=== PATIENT | female | born 1980 | race Caucasian/White ===

== ENCOUNTER → 2016-12-21 | Outpatient (CLI) | payer BC | END | disposition home or self-care (01) | LOC: Rad HDHVI 14:04 | PROVIDERS: ATTEND Internal Medicine Cardiovascular Disease | DX: I42.8 Other cardiomyopathies (principal); I50.9 Heart failure, unspecified | CPT/HCPCS: 93306 ==

== ENCOUNTER → 2016-12-28 | Outpatient (CLI) | payer BC ==
[~2016-12-28] VITALS: Ht 175.3 cm; Wt 127.0 kg
== END | disposition home or self-care (01) ==
LOC: Rad HDHVI 10:04
PROVIDERS: ATTEND Internal Medicine Cardiovascular Disease
DX: Z01.810 Encounter for preprocedural cardiovascular examination (principal); I42.1 Obstructive hypertrophic cardiomyopathy
CPT/HCPCS: 78472; 96374; 96375; A9505

== ENCOUNTER → 2017-03-07 | Outpatient (CLI) | payer BC, MEDICARE ==
[~2017-03-07] MED LIST: CARV6.25 PO; FURO40TA PO; LOSA25TA9 PO; OME20T PO; OMEP20CA74 PO; [UNRECOGNIZED DRUG - CODE] PO
[2017-03-07 08:30] VITALS: BP 135/96
[2017-03-07 09:05] VITALS: BP 148/92
[2017-03-07 12:18] LABS: Basophils # (auto) 0.1 uL; Eosinophils # (auto) 0.1 uL; Hemoglobin 12.7 g/dL (12.2-16.2); INR 0.93 (0.9-1.15); Lymphocytes # (auto) 1.3 uL; Mean Corpuscular Hemoglobin 25.7 pg (28.0-32.0); Mean Corpuscular Hgb Conc. 32.5 g/dL (32.0-36.0); Monocytes # (auto) 0.5 uL; Neutrophils # (auto) 6.2 uL; Prothrombin Time 10.1 sec (9.37-12.3); Red Blood Cells 4.94 10^6/uL (4.0-5.20)
[2017-03-07 12:19] LABS: Eosinophils % (auto) 1.3 % (0.0-7.0); Lymphocytes % (auto) 16.3 % (10.0-50.0); Neutrophils % (auto) 75.4 % (37.0-80.0); Nucleated Red Blood Cells % 0.4 %; Platelet Count (auto) 292 10^3/uL (140-450); Red Cell Distribution Width 18.8 % (11.8-14.3); White Blood Cell 8.2 10^3/uL (4.4-10.8)
[2017-03-07 12:46] LABS: BUN/Creatinine Ratio 24.1; Potassium 3.9 mmol/L (3.5-5.1)
== END | disposition home or self-care (01) ==
LOC: Rad HDHVI 08:20
PROVIDERS: ATTEND Internal Medicine Cardiovascular Disease
DX: Z01.818 Encounter for other preprocedural examination (principal); D64.9 Anemia, unspecified; R79.1 Abnormal coagulation profile; I11.0 Hypertensive heart disease with heart failure; I50.9 Heart failure, unspecified; I42.8 Other cardiomyopathies
CPT/HCPCS: 36415; 71046; 80048; 85025; 85610; 85730; 93005; G0463

== ENCOUNTER 2017-03-08 08:40 | Day surgery (SDC) | payer BC, MEDICARE ==
[~2017-03-08] VITALS: Ht 175.3 cm; Wt 134.3 kg
[~2017-03-08 08:40] MED LIST changes: -CARV6.25 PO; -FURO40TA PO; -LOSA25TA9 PO; -OME20T PO; -[UNRECOGNIZED DRUG - CODE] PO
[2017-03-08] MEDS ORDERED: IOHEXOL 350 MG/ML 100ML IJ ONE (09:38)
[2017-03-08] MEDS ORDERED: LIDOCAINE 2%HCL (LOCAL ANESTH.) INJ 20ML MDV ONE ×2 (09:38→10:29)
[2017-03-08] MEDS ORDERED: ANGIOMAX 250 MG VIAL IV ONE (09:59)
[2017-03-08] MEDS ORDERED: fentaNYL CITRATE 100 MCG/2 ML VL ONE (09:59)
[2017-03-08] MEDS ORDERED: MIDAZOLAM HCL 1MG/1ML-2 ML VIAL ONE ×2 (10:00→10:26)
[2017-03-08] MEDS ORDERED: SODIUM CHL 0.9% 50 ML ONE (10:00)
[2017-03-08] MEDS ORDERED: HYDROmorphone HCL 2 MG/ML VL ONE (10:43)
[2017-04-18] MEDS ORDERED: CARV6.25 PO (15:58)
== END 2017-03-08 13:25 | disposition home or self-care (01) ==
LOC: CATH 08:40
PROVIDERS: ATTEND Internal Medicine Cardiovascular Disease
DX: I42.0 Dilated cardiomyopathy (principal); E66.9 Obesity, unspecified; Z68.41 Body mass index [BMI] 40.0-44.9, adult; I50.9 Heart failure, unspecified; I73.9 Peripheral vascular disease, unspecified
CPT/HCPCS: 93460; C1760; C1894; J1170; J1644; J2250; J3010; J7030; Q9967; 99152; 99153

== ENCOUNTER → 2017-03-13 | Outpatient (CLI) | payer BC, MEDICARE ==
[~2017-03-13] MED LIST changes: +CARV6.25 PO; +FURO40TA PO; +LOSA25TA9 PO; +OME20T PO; +[UNRECOGNIZED DRUG - CODE] PO
== END | disposition home or self-care (01) ==
LOC: Rad HDHVI 09:10
PROVIDERS: ATTEND Internal Medicine Cardiovascular Disease
DX: R10.30 Lower abdominal pain, unspecified (principal)
CPT/HCPCS: 76705

== ENCOUNTER → 2017-03-14 | Outpatient (CLI) | payer BC, MEDICARE ==
[~2017-03-14] MED LIST changes: +IOHEXOL 350 MG/ML 100ML IJ ONE
[2017-03-14 15:55] VITALS: BP 134/95
[2017-03-14 16:30] VITALS: BP 138/87
== END | disposition home or self-care (01) ==
LOC: Rad HDHVI 15:51
PROVIDERS: ATTEND Internal Medicine Cardiovascular Disease
DX: K66.1 Hemoperitoneum (principal)
CPT/HCPCS: 72193; 96374; G0463; Q9967

== ENCOUNTER 2017-03-19 16:03 | Inpatient (IN) | payer BC, MEDICARE ==
[~2017-03-19] VITALS: Ht 172.7 cm; Wt 136.2 kg
[~2017-03-19 16:03] MED LIST changes: -CARV6.25 PO; -FURO40TA PO; -IOHEXOL 350 MG/ML 100ML IJ ONE; -KETOROLAC TROMETH 30 MG/ML 1ML VIAL IV PRN; -KETOROLAC TROMETH 60MG/2ML VIAL IM ONE; -LOSA25TA9 PO; -OME20T PO; -[UNRECOGNIZED DRUG - CODE] PO
[2017-03-19 17:13] VITALS: BP 145/72
[2017-03-19 17:20] LABS: Urine WBC None Seen /hpf (0 - 5)
[2017-03-19 17:41] LABS: Urine Bacteria FEW /hpf (None Seen); Urine Blood TRACE /uL (Negative); Urine Mucus FEW (None Seen)
[2017-03-19 17:50] LABS: Urine Specific Gravity > 1.050 (1.001-1.035)
[2017-03-19] MEDS ORDERED: EPOETIN ALFA 4,000 UNIT/ML VL SC ONE (18:00)
[2017-03-19] MEDS: HYDROmorphone HCL 2 MG/ML VL IV PRN ×2 (18:15→21:46)
[2017-03-19 21:30] VITALS: BP 122/70
[2017-03-19] MEDS: CARVEDILOL 3.125 MG TAB PO SCH (21:45)
[2017-03-20] MEDS: HYDROmorphone HCL 2 MG/ML VL IV PRN ×6 (01:54→20:14)
[2017-03-20 05:00] VITALS: BP 98/57
[2017-03-20 05:45] LABS: Basophils # (auto) 0.1 uL; Eosinophils # (auto) 0.2 uL; Hemoglobin 10.1 g/dL (12.2-16.2); Monocytes # (auto) 0.6 uL; Neutrophils # (auto) 4.6 uL; White Blood Cell 7.1 10^3/uL (4.4-10.8)
[2017-03-20 05:47] LABS: Eosinophils % (auto) 2.4 % (0.0-7.0); Hematocrit 31.2 % (36.0-46.0); Lymphocytes # (auto) 1.6 uL; Lymphocytes % (auto) 22.7 % (10.0-50.0); Mean Corpuscular Hemoglobin 25.9 pg (28.0-32.0); Mean Corpuscular Hgb Conc. 32.2 g/dL (32.0-36.0); Mean Corpuscular Volume 80.4 fL (80.0-100.0); Monocytes % (auto) 8.6 % (0.0-12.0); Neutrophils % (auto) 65.3 % (37.0-80.0); Nucleated Red Blood Cells % 0.1 %; Platelet Count (auto) 429 10^3/uL (140-450); Red Blood Cells 3.89 10^6/uL (4.0-5.20); Red Cell Distribution Width 18.1 % (11.8-14.3)
[2017-03-20 06:05] LABS: Calcium 8.8 mg/dL (8.5-10.1); Potassium 3.5 mmol/L (3.5-5.1)
[2017-03-20 06:08] LABS: BUN/Creatinine Ratio 26.7
[2017-03-20 09:00] VITALS: BP 124/56
[2017-03-20] MEDS: PANTOPRAZOLE 40 MG TAB PO SCH (10:33)
[2017-03-20] MEDS: CARVEDILOL 3.125 MG TAB PO SCH ×2 (10:40→21:35)
[2017-03-20] MEDS: LOSARTAN POTASSIUM 25 MG TAB PO SCH (10:41)
[2017-03-20 13:00] VITALS: BP 116/58
[2017-03-20] MEDS ORDERED: HYDROmorphone HCL 2 MG/ML VL IV PRN (15:30)
[2017-03-20 17:00] VITALS: BP 118/62
[2017-03-20] MEDS: DOCUSATE SOD 100 MG CAP PO SCH (21:35)
[2017-03-20] MEDS: LORazepam 0.5 MG TAB PO PRN (21:35)
[2017-03-20 21:40] VITALS: BP 109/55
[2017-03-21 05:00] VITALS: BP 104/55
[2017-03-21] MEDS: HYDROmorphone HCL 2 MG/ML VL IV PRN (05:33)
[2017-03-21] MEDS ORDERED: IOHEXOL 300 MG/ML 100ML BOTTLE IJ ONE (06:54)
[2017-03-21 07:21] LABS: Basophils # (auto) 0.1 uL; Eosinophils # (auto) 0.1 uL; Hemoglobin 9.9 g/dL (12.2-16.2); Lymphocytes # (auto) 1.1 uL
[2017-03-21 07:24] LABS: Basophils % (auto) 1.1 % (0.0-2.0); Hematocrit 30.3 % (36.0-46.0); Mean Corpuscular Hemoglobin 26.2 pg (28.0-32.0); Mean Corpuscular Hgb Conc. 32.6 g/dL (32.0-36.0); Mean Corpuscular Volume 80.4 fL (80.0-100.0); Monocytes # (auto) 0.5 uL; Monocytes % (auto) 7.5 % (0.0-12.0); Neutrophils # (auto) 5.2 uL; Neutrophils % (auto) 74.4 % (37.0-80.0); Platelet Count (auto) 422 10^3/uL (140-450); Red Blood Cells 3.76 10^6/uL (4.0-5.20); Red Cell Distribution Width 17.7 % (11.8-14.3)
[2017-03-21 07:53] VITALS: BP 110/50
[2017-03-21] MEDS: LOSARTAN POTASSIUM 25 MG TAB PO SCH (11:00)
[2017-03-21] MEDS: PANTOPRAZOLE 40 MG TAB PO SCH (11:00)
[2017-03-21] MEDS: DOCUSATE SOD 100 MG CAP PO SCH ×2 (11:01→21:55)
[2017-03-21] MEDS: CARVEDILOL 3.125 MG TAB PO SCH ×2 (11:01→21:55)
[2017-03-21 11:34] VITALS: BP 108/54
[2017-03-21] MEDS ORDERED: HYDROmorphone HCL 2 MG TAB PO SCH (12:00)
[2017-03-21] MEDS: MEPERIDINE HCL (50 MG/ML) 1 ML VIAL IV PRN ×2 (15:13→20:07)
[2017-03-21 16:16] VITALS: BP 104/48
[2017-03-21] MEDS: HYDROmorphone HCL 2 MG TAB PO PRN (21:54)
[2017-03-21 22:00] VITALS: BP 143/93
[2017-03-21] MEDS: LORazepam 0.5 MG TAB PO PRN (23:36)
[2017-03-22] MEDS: MEPERIDINE HCL (50 MG/ML) 1 ML VIAL IV PRN ×4 (03:53→20:03)
[2017-03-22 05:00] VITALS: BP 105/55
[2017-03-22] MEDS: HYDROmorphone HCL 2 MG TAB PO PRN ×4 (07:38→23:25)
[2017-03-22 07:56] VITALS: BP 103/58
[2017-03-22] MEDS: DOCUSATE SOD 100 MG CAP PO SCH ×2 (09:47→22:16)
[2017-03-22] MEDS: CARVEDILOL 3.125 MG TAB PO SCH ×2 (09:47→22:16)
[2017-03-22] MEDS: PANTOPRAZOLE 40 MG TAB PO SCH (09:47)
[2017-03-22] MEDS: LOSARTAN POTASSIUM 25 MG TAB PO SCH (09:48)
[2017-03-22 11:37] VITALS: BP 102/62
[2017-03-22] MEDS ORDERED: BISACODYL 5 MG EC TAB PO ONE (13:45)
[2017-03-22 16:01] VITALS: BP 113/64
[2017-03-22 22:00] VITALS: BP 100/55
[2017-03-22] MEDS: LORazepam 0.5 MG TAB PO PRN (22:16)
[2017-03-23] MEDS: MEPERIDINE HCL (50 MG/ML) 1 ML VIAL IV PRN ×3 (04:05→12:46)
[2017-03-23 05:00] VITALS: BP 119/63
[2017-03-23 08:40] VITALS: BP 113/63
[2017-03-23] MEDS: DOCUSATE SOD 100 MG CAP PO SCH ×2 (09:20→21:35)
[2017-03-23] MEDS: PANTOPRAZOLE 40 MG TAB PO SCH (09:20)
[2017-03-23] MEDS: CARVEDILOL 3.125 MG TAB PO SCH ×2 (09:20→21:36)
[2017-03-23] MEDS: LOSARTAN POTASSIUM 25 MG TAB PO SCH (09:21)
[2017-03-23 13:07] VITALS: BP 108/51
[2017-03-23] MEDS: HYDROmorphone HCL 2 MG TAB PO PRN (14:55)
[2017-03-23] MEDS: HYDROmorphone HCL 2 MG/ML VL IV PRN ×3 (16:27→23:29)
[2017-03-23 16:58] VITALS: BP 111/61
[2017-03-23 22:00] VITALS: BP 118/70
[2017-03-24] MEDS: LORazepam 0.5 MG TAB PO PRN ×2 (00:14→23:51)
[2017-03-24] MEDS: HYDROmorphone HCL 2 MG/ML VL IV PRN (04:46)
[2017-03-24 05:00] VITALS: BP 106/57
[2017-03-24 08:00] VITALS: BP 118/63
[2017-03-24] MEDS: MEPERIDINE HCL (50 MG/ML) 1 ML VIAL IV PRN ×4 (08:55→23:18)
[2017-03-24 09:00] VITALS: BP 118/63
[2017-03-24] MEDS: DOCUSATE SOD 100 MG CAP PO SCH ×2 (10:01→21:39)
[2017-03-24] MEDS: CARVEDILOL 3.125 MG TAB PO SCH ×2 (10:03→21:40)
[2017-03-24] MEDS: PANTOPRAZOLE 40 MG TAB PO SCH (10:04)
[2017-03-24] MEDS: LOSARTAN POTASSIUM 25 MG TAB PO SCH (10:04)
[2017-03-24] MEDS: HYDROmorphone HCL 2 MG TAB PO PRN (12:06)
[2017-03-24 17:00] VITALS: BP 116/57
[2017-03-24 22:00] VITALS: BP 117/76
[2017-03-25] MEDS: MEPERIDINE HCL (50 MG/ML) 1 ML VIAL IV PRN ×5 (04:46→23:12)
[2017-03-25 05:00] VITALS: BP 97/46
[2017-03-25 08:00] VITALS: BP 124/66
[2017-03-25 09:03] VITALS: BP 124/66
[2017-03-25] MEDS: CARVEDILOL 3.125 MG TAB PO SCH ×2 (09:45→21:35)
[2017-03-25] MEDS: LOSARTAN POTASSIUM 25 MG TAB PO SCH (09:46)
[2017-03-25] MEDS: PANTOPRAZOLE 40 MG TAB PO SCH (09:46)
[2017-03-25] MEDS: DOCUSATE SOD 100 MG CAP PO SCH ×2 (09:47→21:34)
[2017-03-25 13:00] VITALS: BP 117/63
[2017-03-25 17:13] VITALS: BP 153/84
[2017-03-25 21:38] VITALS: BP 102/52
[2017-03-26] MEDS: LORazepam 0.5 MG TAB PO PRN (00:03)
[2017-03-26] MEDS: MEPERIDINE HCL (50 MG/ML) 1 ML VIAL IV PRN ×2 (04:01→09:08)
[2017-03-26 05:00] VITALS: BP 114/59
[2017-03-26 08:15] VITALS: BP 109/61
[2017-03-26 09:24] VITALS: BP 109/61
[2017-03-26] MEDS: CARVEDILOL 3.125 MG TAB PO SCH (10:00)
[2017-03-26] MEDS: PANTOPRAZOLE 40 MG TAB PO SCH (10:00)
[2017-03-26] MEDS: LOSARTAN POTASSIUM 25 MG TAB PO SCH (10:00)
[2017-03-26] MEDS: DOCUSATE SOD 100 MG CAP PO SCH (10:00)
[2017-03-26 12:30] VITALS: BP 104/51
[2017-04-18] MEDS ORDERED: CARV6.25 PO (15:58)
== END 2017-03-26 12:38 | disposition home or self-care (01) | DRG 292 ==
LOC: WEST WING 16:03
PROVIDERS: ADMIT Internal Medicine Cardiovascular Disease; ATTEND Internal Medicine Cardiovascular Disease
DX: I11.0 Hypertensive heart disease with heart failure (principal); Z68.42 Body mass index [BMI] 45.0-49.9, adult; E66.01 Morbid (severe) obesity due to excess calories; I42.0 Dilated cardiomyopathy; G47.00 Insomnia, unspecified; I34.0 Nonrheumatic mitral (valve) insufficiency; I50.23 Acute on chronic systolic (congestive) heart failure; R58 Hemorrhage, not elsewhere classified; Z82.49 Family history of ischemic heart disease and other diseases of the circulatory system; Z88.2 Allergy status to sulfonamides; Z88.8 Allergy status to other drugs, medicaments and biological substances; Z79.899 Other long term (current) drug therapy
CPT/HCPCS: 36415; 74177; 80048; 81001; 85025

== ENCOUNTER → 2017-03-19 | Outpatient (CLI) | payer BC, MEDICARE ==
[~2017-03-19] MED LIST changes: +KETOROLAC TROMETH 30 MG/ML 1ML VIAL IV PRN; +KETOROLAC TROMETH 60MG/2ML VIAL IM ONE
[2017-03-19 12:00] VITALS: BP 141/104
[2017-03-19 15:11] VITALS: BP 115/63
[2017-03-19 16:34] LABS: Calcium 9.5 mg/dL (8.5-10.1); Potassium 3.9 mmol/L (3.5-5.1)
[2017-03-19 16:36] LABS: BUN/Creatinine Ratio 18.3
[2017-03-19 17:01] LABS: Basophils # (auto) 0.1 uL; Eosinophils # (auto) 0.1 uL; Lymphocytes # (auto) 1.3 uL; Mean Corpuscular Hemoglobin 26.1 pg (28.0-32.0); Nucleated Red Blood Cells % 0.2 %; White Blood Cell 7.9 10^3/uL (4.4-10.8)
[2017-03-19 17:05] LABS: Basophils % (auto) 1.3 % (0.0-2.0); Eosinophils % (auto) 1.6 % (0.0-7.0); Hematocrit 35.4 % (36.0-46.0); Hemoglobin 11.4 g/dL (12.2-16.2); Mean Corpuscular Hgb Conc. 32.3 g/dL (32.0-36.0); Mean Corpuscular Volume 80.6 fL (80.0-100.0); Monocytes # (auto) 0.6 uL; Monocytes % (auto) 7.3 % (0.0-12.0); Neutrophils # (auto) 5.8 uL; Neutrophils % (auto) 73.8 % (37.0-80.0); Platelet Count (auto) 516 10^3/uL (140-450); Red Blood Cells 4.39 10^6/uL (4.0-5.20); Red Cell Distribution Width 18.3 % (11.8-14.3)
== END | disposition home or self-care (01) ==
LOC: CHF HDHVI 11:58
PROVIDERS: ATTEND Internal Medicine Cardiovascular Disease
DX: D64.9 Anemia, unspecified (principal); I10 Essential (primary) hypertension; Z90.49 Acquired absence of other specified parts of digestive tract; Z98.84 Bariatric surgery status; Z98.890 Other specified postprocedural states
CPT/HCPCS: 36415; 74177; 80048; 82565; 85025; 96374; G0463; J1885; Q9967

== ENCOUNTER → 2017-04-18 | Outpatient (CLI) | payer BC, MEDICARE ==
[~2017-04-18] MED LIST changes: +CARV6.25 PO; +FURO40TA PO; +LOSA25TA9 PO; +OME20T PO; +[UNRECOGNIZED DRUG - CODE] PO
[2017-04-18 09:20] VITALS: BP 142/74
[2017-04-18 09:50] VITALS: BP 139/84
[2017-04-18 12:24] LABS: Basophils # (auto) 0.1 uL; Eosinophils # (auto) 0.2 uL; Monocytes # (auto) 0.5 uL; Neutrophils # (auto) 4.7 uL
[2017-04-18 12:27] LABS: Basophils % (auto) 1.5 % (0.0-2.0); Eosinophils % (auto) 2.9 % (0.0-7.0); Hematocrit 40.1 % (36.0-46.0); Hemoglobin 12.9 g/dL (12.2-16.2); Lymphocytes # (auto) 1.6 uL; Mean Corpuscular Hemoglobin 25.6 pg (28.0-32.0); Mean Corpuscular Hgb Conc. 32.1 g/dL (32.0-36.0); Mean Corpuscular Volume 79.6 fL (80.0-100.0); Monocytes % (auto) 7.1 % (0.0-12.0); Neutrophils % (auto) 65.5 % (37.0-80.0); Nucleated Red Blood Cells % 0.2 %; Platelet Count (auto) 301 10^3/uL (140-450); Red Blood Cells 5.04 10^6/uL (4.0-5.20); Red Cell Distribution Width 16.8 % (11.8-14.3); White Blood Cell 7.1 10^3/uL (4.4-10.8)
[2017-04-18 12:41] LABS: BUN/Creatinine Ratio 19.7; Calcium 9.2 mg/dL (8.5-10.1); INR 0.94 (0.9-1.15); Partial Thromboplastin Time 27.6 sec (22.64-33.71); Potassium 4.2 mmol/L (3.5-5.1); Prothrombin Time 10.2 sec (9.37-12.3)
== END | disposition home or self-care (01) ==
LOC: Rad HDHVI 08:59
PROVIDERS: ATTEND Internal Medicine Cardiovascular Disease
DX: Z01.818 Encounter for other preprocedural examination (principal); M41.80 Other forms of scoliosis, site unspecified; I11.0 Hypertensive heart disease with heart failure; I50.9 Heart failure, unspecified; D64.9 Anemia, unspecified; R79.1 Abnormal coagulation profile; I42.8 Other cardiomyopathies
CPT/HCPCS: 36415; 71046; 80048; 84702; 85025; 85610; 85730; 93005; G0463

== ENCOUNTER 2017-04-24 12:15 | Inpatient (IN) | payer BC, MEDICARE ==
[~2017-04-24] VITALS: Ht 175.3 cm; Wt 134.5 kg
[~2017-04-24 12:15] MED LIST changes: -FURO40TA PO; -LOSA25TA9 PO; -OME20T PO; -[UNRECOGNIZED DRUG - CODE] PO
[2017-04-24] MEDS ORDERED: IOHEXOL 350 MG/ML 100ML IJ ONE (12:38)
[2017-04-24] MEDS ORDERED: LIDOCAINE 2%HCL (LOCAL ANESTH.) INJ 20ML MDV ONE ×2 (12:38→14:16)
[2017-04-24] MEDS ORDERED: ceFAZolin 1GM/50ML 50 ML IV ONE (13:02)
[2017-04-24] MEDS ORDERED: VANCOMYCIN HCL 1000 MG VL ONE ×2 (13:02→13:03)
[2017-04-24] MEDS ORDERED: fentaNYL CITRATE 100 MCG/2 ML VL ONE ×2 (13:02→14:10)
[2017-04-24] MEDS ORDERED: VANCOMYCIN 1GM/250ML 250 ML IV ONE (13:03)
[2017-04-24] MEDS ORDERED: MIDAZOLAM HCL 1MG/1ML-2 ML VIAL ONE ×2 (13:03→14:10)
[2017-04-24] MEDS ORDERED: LORazepam 2MG/ML-1ML VIAL IV ONE (13:30)
[2017-04-24] MEDS ORDERED: diphenhdrAMINE HCL 50 MG/1 ML VL ONE (13:52)
[2017-04-24] MEDS ORDERED: EPINEPHrine HCL 1 MG/10 ML SYRG ONE (13:53)
[2017-04-24] MEDS ORDERED: ATROPINE SULF 0.5 MG/5ML SYR ONE (13:53)
[2017-04-24] MEDS ORDERED: LIDOCAINE W/ EPINEPHRINE 2% INJ 20ML VIAL ONE (14:56)
[2017-04-24] MEDS ORDERED: OMEPRAZOLE 20MG/10ML ORAL SUSP PO PRN (15:15)
[2017-04-24] MEDS ORDERED: ACETAMINOPHEN 325 MG TAB PO PRN (15:15)
[2017-04-24] MEDS ORDERED: LORazepam 0.5 MG TAB PO PRN (15:15)
[2017-04-24] MEDS ORDERED: NITROGLYCERIN 0.4 MG SL TAB SL PRN (15:15)
[2017-04-24] MEDS ORDERED: MORPHINE SULFATE 4 MG/ML SYR/VIAL IV PRN (15:15)
[2017-04-24] MEDS ORDERED: HYDROmorphone HCL 2 MG/ML VL IV PRN (15:30)
[2017-04-24 17:51] VITALS: BP 120/81
[2017-04-24] MEDS ORDERED: HYDROmorphone HCL 2 MG TAB PO PRN (18:45)
[2017-04-24 20:00] VITALS: BP 133/75
[2017-04-24] MEDS: MEPERIDINE HCL (50 MG/ML) 1 ML VIAL IV PRN (20:24)
[2017-04-24] MEDS: CARVEDILOL 3.125 MG TAB PO SCH (21:25)
[2017-04-24 22:00] VITALS: BP 133/75
[2017-04-24] MEDS ORDERED: VANCOMYCIN 1GM/250ML 250 ML IV SCH (22:00)
[2017-04-24] MEDS: HYDROcodone-ACET 10/325MG TAB PO PRN (23:53)
[2017-04-25] MEDS ORDERED: HYDROmorphone HCL 2 MG TAB PO SCH (02:00)
[2017-04-25] MEDS: MEPERIDINE HCL (50 MG/ML) 1 ML VIAL IV PRN ×3 (02:16→14:32)
[2017-04-25] MEDS: VANCOMYCIN 1GM/250ML 250 ML IV SCH ×2 (02:17→14:32)
[2017-04-25 05:35] VITALS: BP 112/60
[2017-04-25] MEDS: HYDROcodone-ACET 10/325MG TAB PO PRN ×3 (07:38→16:31)
[2017-04-25 09:00] VITALS: BP 113/61
[2017-04-25] MEDS: CARVEDILOL 3.125 MG TAB PO SCH (09:34)
[2017-04-25] MEDS ORDERED: PANTOPRAZOLE 40 MG TAB PO PRN (10:00)
[2017-04-25 13:00] VITALS: BP 105/62
[2017-04-25 13:42] VITALS: BP 122/73
== END 2017-04-25 17:00 | disposition home or self-care (01) | DRG 227 ==
LOC: CATH 12:15 → TELE-CENTR 12:16
PROVIDERS: ADMIT Internal Medicine Cardiovascular Disease; ATTEND Internal Medicine Cardiovascular Disease
PROC: 0JH609Z Insertion of Cardiac Resynchronization Defibrillator Pulse Generator into Chest Subcutaneous Tissue and Fascia, Open Approach (ICD-10-PCS; principal; 2017-04-24)
PROC: 02HL3KZ Insertion of Defibrillator Lead into Left Ventricle, Percutaneous Approach (ICD-10-PCS; 2017-04-24)
PROC: 02H63KZ Insertion of Defibrillator Lead into Right Atrium, Percutaneous Approach (ICD-10-PCS; 2017-04-24)
PROC: 02HK3KZ Insertion of Defibrillator Lead into Right Ventricle, Percutaneous Approach (ICD-10-PCS; 2017-04-24)
DX: I42.0 Dilated cardiomyopathy (principal); I11.0 Hypertensive heart disease with heart failure; I50.22 Chronic systolic (congestive) heart failure; E66.01 Morbid (severe) obesity due to excess calories; Z68.41 Body mass index [BMI] 40.0-44.9, adult; I25.10 Atherosclerotic heart disease of native coronary artery without angina pectoris; I34.0 Nonrheumatic mitral (valve) insufficiency; Z95.810 Presence of automatic (implantable) cardiac defibrillator; Z82.3 Family history of stroke; Z82.49 Family history of ischemic heart disease and other diseases of the circulatory system; Z88.2 Allergy status to sulfonamides; Z88.8 Allergy status to other drugs, medicaments and biological substances
CPT/HCPCS: 33225; 33249; 71045; 93005; 99152; 99153; J0461; J0690; J2250

== ENCOUNTER → 2017-04-27 | Outpatient (CLI) | payer BC, MEDICARE ==
[~2017-04-27] MED LIST changes: +CYANOCOBALAMIN (B-12) 1000 MCG/1 ML VIAL IM ONE; +CYANOCOBALAMIN (B-12) 1000 MCG/1 ML VIAL ONE; +FURO40TA PO; +LOSA25TA9 PO; +OME20T PO; +[UNRECOGNIZED DRUG - CODE] PO
[2017-04-27 10:55] VITALS: BP 122/82
[2017-04-27 12:10] VITALS: BP 127/74
== END | disposition home or self-care (01) ==
LOC: CHF HDHVI 10:55
PROVIDERS: ATTEND Internal Medicine Cardiovascular Disease
DX: D64.9 Anemia, unspecified (principal)
CPT/HCPCS: 96372; G0463; J3420

== ENCOUNTER 2017-05-27 07:36 | Inpatient (IN) | payer BC, MEDICARE ==
[~2017-05-27] VITALS: Ht 175.3 cm; Wt 135.1 kg
[~2017-05-27 07:36] MED LIST changes: -CYANOCOBALAMIN (B-12) 1000 MCG/1 ML VIAL IM ONE; -CYANOCOBALAMIN (B-12) 1000 MCG/1 ML VIAL ONE; -FURO40TA PO; -LOSA25TA9 PO; -OME20T PO; -[UNRECOGNIZED DRUG - CODE] PO
[2017-05-27] MEDS ORDERED: SODIUM CHLORIDE 0.9% 1,000 ML IV ONE (08:47)
[2017-05-27] MEDS ORDERED: ONDANSETRON HCL 4 MG/2 ML VIAL IV ONE (09:00)
[2017-05-27] MEDS ORDERED: MORPHINE SULFATE 4 MG/ML SYR/VIAL IV ONE (09:00)
[2017-05-27] MEDS ORDERED: CLINDAMYCIN 600MG IV 50 ML IV ONE (09:00)
[2017-05-27 09:07] LABS: Lymphocytes # (auto) 1.1 uL; Monocytes # (auto) 0.9 uL
[2017-05-27 09:09] LABS: Basophils # (auto) 0.1 uL; Basophils % (auto) 0.6 % (0.0-2.0); Eosinophils # (auto) 0.1 uL; Eosinophils % (auto) 0.7 % (0.0-7.0); Hematocrit 38.1 % (36.0-46.0); Hemoglobin 12.2 g/dL (12.2-16.2); Lymphocytes % (auto) 7.2 % (10.0-50.0); Mean Corpuscular Hemoglobin 24.8 pg (28.0-32.0); Mean Corpuscular Volume 77.4 fL (80.0-100.0); Monocytes % (auto) 5.8 % (0.0-12.0); Neutrophils # (auto) 13.5 uL; Neutrophils % (auto) 85.7 % (37.0-80.0); Nucleated Red Blood Cells % 0.1 %; Platelet Count (auto) 245 10^3/uL (140-450); Red Blood Cells 4.92 10^6/uL (4.0-5.20); Red Cell Distribution Width 17.4 % (11.8-14.3); White Blood Cell 15.8 10^3/uL (4.4-10.8)
[2017-05-27 09:22] LABS: Albumin 3.4 g/dL (3.4-5.0); Calcium 8.7 mg/dL (8.5-10.1); Potassium 3.8 mmol/L (3.5-5.1)
[2017-05-27 09:24] LABS: Magnesium 1.8 mg/dL (1.6-2.6)
[2017-05-27 09:25] LABS: Bilirubin, Total 0.6 mg/dL (0.2-1.0); Total Protein 7.1 g/dL (6.4-8.2)
[2017-05-27] MEDS ORDERED: FUROSEMIDE 20 MG TAB PO ONE (11:30)
[2017-05-27] MEDS: PANTOPRAZOLE 40 MG TAB PO SCH (11:52)
[2017-05-27] MEDS: MEPERIDINE HCL (25 MG/ML) 1ML VIAL IV PRN ×2 (12:13→18:01)
[2017-05-27 13:40] VITALS: BP 107/59
[2017-05-27] MEDS ORDERED: FURO40TA PO (15:02)
[2017-05-27] MEDS ORDERED: [UNRECOGNIZED DRUG - CODE] PO (15:02)
[2017-05-27] MEDS ORDERED: OME20T PO (15:02)
[2017-05-27] MEDS ORDERED: LOSA25TA9 PO (15:02)
[2017-05-27] MEDS: PIPERACILLIN-TAZO 4.5GM 100 ML IV SCH ×3 (15:09→22:15)
[2017-05-27 17:00] VITALS: BP 90/59
[2017-05-27] MEDS: ACETAMINOPHEN 325 MG TAB PO PRN (20:56)
[2017-05-27] MEDS: CARVEDILOL 3.125 MG TAB PO SCH (22:14)
[2017-05-27] MEDS: MEPERIDINE HCL (50 MG/ML) 1 ML VIAL IV PRN (22:16)
[2017-05-27] MEDS: TEMAZEPAM 15 MG CAP PO PRN (23:52)
[2017-05-28] VITALS (8 sets, daily range): BP systolic 88–116; BP diastolic 47–72
[2017-05-28] MEDS: ACETAMINOPHEN 325 MG TAB PO PRN ×3 (05:06→18:53)
[2017-05-28] MEDS: MEPERIDINE HCL (50 MG/ML) 1 ML VIAL IV PRN ×3 (05:12→17:41)
[2017-05-28] MEDS: PIPERACILLIN-TAZO 4.5GM 100 ML IV SCH ×3 (06:21→21:49)
[2017-05-28] MEDS: CARVEDILOL 3.125 MG TAB PO SCH ×2 (10:00→22:00)
[2017-05-28] MEDS: LOSARTAN POTASSIUM 25 MG TAB PO SCH (10:00)
[2017-05-28] MEDS ORDERED: OMEPRAZOLE 20MG/10ML ORAL SUSP PO SCH (10:00)
[2017-05-28] MEDS: POTASSIUM CHL 20 Meq TABLET PO SCH (10:56)
[2017-05-28] MEDS: PANTOPRAZOLE 40 MG TAB PO SCH (10:56)
[2017-05-28] MEDS: HYDROcodone-ACET 7.5/325MG TAB PO PRN (21:38)
[2017-05-29] MEDS: MEPERIDINE HCL (50 MG/ML) 1 ML VIAL IV PRN ×3 (00:19→13:04)
[2017-05-29 05:32] VITALS: BP 122/46
[2017-05-29] MEDS: PIPERACILLIN-TAZO 4.5GM 100 ML IV SCH ×3 (05:44→21:53)
[2017-05-29 08:52] VITALS: BP 113/62
[2017-05-29] MEDS: CARVEDILOL 3.125 MG TAB PO SCH ×2 (10:00→21:54)
[2017-05-29] MEDS: LOSARTAN POTASSIUM 25 MG TAB PO SCH (10:00)
[2017-05-29] MEDS: POTASSIUM CHL 20 Meq TABLET PO SCH (10:51)
[2017-05-29] MEDS: PANTOPRAZOLE 40 MG TAB PO SCH (10:51)
[2017-05-29 12:36] VITALS: BP 131/51
[2017-05-29] MEDS: HYDROcodone-ACET 7.5/325MG TAB PO PRN (12:56)
[2017-05-29 17:00] VITALS: BP 126/45
[2017-05-29] MEDS: MORPHINE SULFATE 4 MG/ML SYR/VIAL IV PRN ×2 (18:10→22:01)
[2017-05-29 20:00] VITALS: BP 123/75
[2017-05-29 22:00] VITALS: BP 123/75
[2017-05-29] MEDS: TEMAZEPAM 15 MG CAP PO PRN (22:22)
[2017-05-30] MEDS: MORPHINE SULFATE 4 MG/ML SYR/VIAL IV PRN ×4 (02:07→21:52)
[2017-05-30 05:00] VITALS: BP 107/59
[2017-05-30] MEDS: PIPERACILLIN-TAZO 4.5GM 100 ML IV SCH ×3 (06:24→22:44)
[2017-05-30 09:00] VITALS: BP 119/70
[2017-05-30] MEDS: LOSARTAN POTASSIUM 25 MG TAB PO SCH (10:00)
[2017-05-30] MEDS: CARVEDILOL 3.125 MG TAB PO SCH ×2 (10:00→21:51)
[2017-05-30 10:53] LABS: Basophils # (auto) 0.1 uL; Eosinophils # (auto) 0.2 uL; Lymphocytes # (auto) 0.9 uL; Monocytes # (auto) 0.5 uL; Neutrophils # (auto) 2.4 uL; Neutrophils % (auto) 60.4 % (37.0-80.0)
[2017-05-30 10:55] LABS: Basophils % (auto) 1.3 % (0.0-2.0); Eosinophils % (auto) 4.4 % (0.0-7.0); Hematocrit 35.1 % (36.0-46.0); Hemoglobin 11.8 g/dL (12.2-16.2); Lymphocytes % (auto) 21.5 % (10.0-50.0); Mean Corpuscular Hemoglobin 26.1 pg (28.0-32.0); Mean Corpuscular Hgb Conc. 33.7 g/dL (32.0-36.0); Monocytes % (auto) 12.4 % (0.0-12.0); Nucleated Red Blood Cells % 0.1 %; Platelet Count (auto) 224 10^3/uL (140-450); Red Blood Cells 4.54 10^6/uL (4.0-5.20); Red Cell Distribution Width 17.7 % (11.8-14.3)
[2017-05-30 10:59] LABS: Mean Corpuscular Volume 77.3 fL (80.0-100.0)
[2017-05-30 11:01] LABS: INR 0.94 (0.9-1.15); Prothrombin Time 10.2 sec (9.37-12.3)
[2017-05-30 11:22] LABS: Albumin 2.8 g/dL (3.4-5.0); BUN/Creatinine Ratio 16.7; Bilirubin, Total 0.5 mg/dL (0.2-1.0); Calcium 8.3 mg/dL (8.5-10.1); Potassium 3.9 mmol/L (3.5-5.1); Total Protein 6.8 g/dL (6.4-8.2)
[2017-05-30] MEDS: POTASSIUM CHL 20 Meq TABLET PO SCH (11:30)
[2017-05-30] MEDS: PANTOPRAZOLE 40 MG TAB PO SCH (11:30)
[2017-05-30 13:00] VITALS: BP 110/67
[2017-05-30 17:00] VITALS: BP 136/78
[2017-05-30] MEDS ORDERED: diphenhdrAMINE HCL 50 MG/1 ML VL IV ONE (19:00)
[2017-05-30] MEDS ORDERED: MORPHINE SULFATE 4 MG/ML SYR/VIAL IV ONE (19:00)
[2017-05-30] MEDS ORDERED: PROMETHAZINE HCL 25 MG/ML 1ML IV ONE (19:00)
[2017-05-30 23:14] VITALS: BP 115/62
[2017-05-31] MEDS: TEMAZEPAM 15 MG CAP PO PRN (00:08)
[2017-05-31] MEDS: MORPHINE SULFATE 4 MG/ML SYR/VIAL IV PRN ×2 (05:58→19:55)
[2017-05-31] MEDS: PIPERACILLIN-TAZO 4.5GM 100 ML IV SCH ×3 (06:00→21:41)
[2017-05-31 06:11] VITALS: BP 99/62
[2017-05-31 08:00] VITALS: BP 122/85
[2017-05-31] MEDS: CARVEDILOL 3.125 MG TAB PO SCH ×2 (10:00→21:41)
[2017-05-31] MEDS: LOSARTAN POTASSIUM 25 MG TAB PO SCH (10:00)
[2017-05-31] MEDS: HYDROcodone-ACET 7.5/325MG TAB PO PRN (10:56)
[2017-05-31] MEDS: PANTOPRAZOLE 40 MG TAB PO SCH (11:36)
[2017-05-31] MEDS: POTASSIUM CHL 20 Meq TABLET PO SCH (11:36)
[2017-05-31] MEDS ORDERED: LIDOCAINE 1% (LOCAL ANESTH.) PF 5ml SDV ID ONE (12:30)
[2017-05-31 12:46] VITALS: BP 112/65
[2017-05-31] MEDS ORDERED: PROMETHAZINE HCL 25 MG/ML 1ML IV ONE (16:15)
[2017-05-31 16:40] VITALS: BP 113/72
[2017-05-31 21:30] VITALS: BP 118/72
[2017-05-31] MEDS: SODIUM CHLOR 0.9% PF (SALINE LOCK) 10ML VIAL IV SCH (21:47)
[2017-06-01] MEDS: TEMAZEPAM 15 MG CAP PO PRN (00:42)
[2017-06-01 05:00] VITALS: BP 117/63
[2017-06-01] MEDS: MORPHINE SULFATE 4 MG/ML SYR/VIAL IV PRN (05:45)
[2017-06-01] MEDS: PIPERACILLIN-TAZO 4.5GM 100 ML IV SCH (05:53)
[2017-06-01 09:00] VITALS: BP 115/62
[2017-06-01] MEDS: SODIUM CHLOR 0.9% PF (SALINE LOCK) 10ML VIAL IV SCH (10:56)
[2017-06-01] MEDS: CARVEDILOL 3.125 MG TAB PO SCH (10:56)
[2017-06-01] MEDS: LOSARTAN POTASSIUM 25 MG TAB PO SCH (10:57)
[2017-06-01] MEDS: POTASSIUM CHL 20 Meq TABLET PO SCH (10:57)
[2017-06-01] MEDS: PANTOPRAZOLE 40 MG TAB PO SCH (10:57)
[2017-06-01] MEDS: HYDROcodone-ACET 7.5/325MG TAB PO PRN (11:50)
[2017-06-01 13:00] VITALS: BP 106/69
[2017-06-01] MEDS ORDERED: cefTRIAXone 1GM/10ml IVPUSH 10 ML IV STA (13:24)
[2017-06-01 15:21] VITALS: BP 106/69
== END 2017-06-01 16:59 | disposition home health service (06) | DRG 314 ==
LOC: ER 07:36 → OVERFLOW 07:37 → WEST WING 12:56
PROVIDERS: ADMIT Internal Medicine Cardiovascular Disease; ATTEND Internal Medicine Cardiovascular Disease
PROC: 02HV33Z Insertion of Infusion Device into Superior Vena Cava, Percutaneous Approach (ICD-10-PCS; principal; 2017-05-31)
DX: T82.7XXA Infection and inflammatory reaction due to other cardiac and vascular devices, implants and grafts, initial encounter (principal); A41.9 Sepsis, unspecified organism; I50.21 Acute systolic (congestive) heart failure; E66.01 Morbid (severe) obesity due to excess calories; I42.0 Dilated cardiomyopathy; F11.20 Opioid dependence, uncomplicated; Z68.41 Body mass index [BMI] 40.0-44.9, adult; L03.818 Cellulitis of other sites; I11.0 Hypertensive heart disease with heart failure; G89.4 Chronic pain syndrome; I34.0 Nonrheumatic mitral (valve) insufficiency; Y83.1 Surgical operation with implant of artificial internal device as the cause of abnormal reaction of the patient, or of later complication, without mention of misadventure at the time of the procedure; Z91.19 Patient's noncompliance with other medical treatment and regimen; Z90.710 Acquired absence of both cervix and uterus; Y92.89 Other specified places as the place of occurrence of the external cause; Z88.2 Allergy status to sulfonamides; Z88.8 Allergy status to other drugs, medicaments and biological substances; Z79.899 Other long term (current) drug therapy; Z71.3 Dietary counseling and surveillance
CPT/HCPCS: 36415; 36569; 71045; 80053; 83605; 83735; 83880; 84484; 85025; 85610; 87040; 87077; 87147; 87186; 87205; 93005; 94761; 96365; 96375; J2405; J2543; J3490

== ENCOUNTER 2017-06-06 08:20 | Inpatient (IN) | payer BC, MEDICARE ==
[~2017-06-06] VITALS: Ht 175.3 cm; Wt 129.3 kg
[~2017-06-06 08:20] MED LIST changes: +FURO40TA PO; +LOSA25TA9 PO; +OME20T PO; -OMEP20CA74 PO; +[UNRECOGNIZED DRUG - CODE] PO
[2017-06-06 09:27] LABS: Basophils # (auto) 0.1 uL; Eosinophils # (auto) 0.3 uL; Hemoglobin 12.4 g/dL (12.2-16.2); Lymphocytes # (auto) 1.2 uL; Lymphocytes % (auto) 11.7 % (10.0-50.0); Monocytes # (auto) 0.7 uL
[2017-06-06 09:28] LABS: Basophils % (auto) 0.8 % (0.0-2.0); Eosinophils % (auto) 3.3 % (0.0-7.0); Hematocrit 37.8 % (36.0-46.0); Mean Corpuscular Hemoglobin 25.4 pg (28.0-32.0); Mean Corpuscular Hgb Conc. 32.9 g/dL (32.0-36.0); Mean Corpuscular Volume 77.3 fL (80.0-100.0); Monocytes % (auto) 6.8 % (0.0-12.0); Neutrophils # (auto) 7.9 uL; Neutrophils % (auto) 77.4 % (37.0-80.0); Platelet Count (auto) 365 10^3/uL (140-450); Red Blood Cells 4.89 10^6/uL (4.0-5.20); Red Cell Distribution Width 17.5 % (11.8-14.3); White Blood Cell 10.2 10^3/uL (4.4-10.8)
[2017-06-06 09:32] LABS: Urine Bacteria NONE SEEN /hpf (None Seen); Urine Blood Negative /uL (Negative); Urine Mucus FEW (None Seen); Urine Specific Gravity 1.026 (1.001-1.035); Urine WBC 1 /hpf (0 - 5)
[2017-06-06 09:46] LABS: Albumin 3.4 g/dL (3.4-5.0); Bilirubin, Total 0.4 mg/dL (0.2-1.0); Calcium 9.1 mg/dL (8.5-10.1); Total Protein 8.1 g/dL (6.4-8.2)
[2017-06-06] MEDS ORDERED: cefTRIAXone 1GM/10ml IVPUSH 10 ML IV ONE (10:30)
[2017-06-06] MEDS ORDERED: PROMETHAZINE HCL 25 MG/ML 1ML IV ONE (10:30)
[2017-06-06] MEDS ORDERED: MORPHINE SULFATE 4 MG/ML SYR/VIAL IV ONE (10:30)
[2017-06-06] MEDS ORDERED: MORPHINE SULFATE 4 MG/ML SYR/VIAL IV PRN (14:15)
[2017-06-06] MEDS ORDERED: NITROGLYCERIN 0.4 MG SL TAB SL PRN (14:15)
[2017-06-06] MEDS: PIPERACILLIN-TAZO 4.5GM 100 ML IV SCH ×2 (15:10→22:38)
[2017-06-06] MEDS ORDERED: MEPERIDINE HCL (50 MG/ML) 1 ML VIAL IM PRN (16:50)
[2017-06-06] MEDS: VANCOMYCIN 1GM/250ML 250 ML IV SCH (17:57)
[2017-06-06] MEDS ORDERED: MEPERIDINE HCL (50 MG/ML) 1 ML VIAL IM ONE (18:00)
[2017-06-06 20:00] VITALS: BP 95/70
[2017-06-06 20:30] VITALS: BP 95/70
[2017-06-06] MEDS ORDERED: PANTOPRAZOLE 40 MG TAB PO ONE ×2 (22:00→22:15)
[2017-06-06] MEDS ORDERED: CARVEDILOL 3.125 MG TAB PO ONE (22:00)
[2017-06-06] MEDS ORDERED: PIPERACILLIN-TAZO 4.5GM 100 ML IV ONE (22:00)
[2017-06-06] MEDS ORDERED: PIPERACILLIN-TAZO 4.5GM 100 ML IV SCH (22:00)
[2017-06-06] MEDS: TEMAZEPAM 15 MG CAP PO PRN (23:15)
[2017-06-07 01:07] VITALS: BP 95/70
[2017-06-07] MEDS: MEPERIDINE HCL (50 MG/ML) 1 ML VIAL IV PRN ×4 (05:25→20:34)
[2017-06-07] MEDS: PIPERACILLIN-TAZO 4.5GM 100 ML IV SCH ×3 (05:34→22:01)
[2017-06-07 05:39] VITALS: BP 114/62
[2017-06-07] MEDS ORDERED: fentaNYL CITRATE 100 MCG/2 ML VL ONE (07:42)
[2017-06-07] MEDS ORDERED: MIDAZOLAM HCL 1MG/1ML-2 ML VIAL ONE ×2 (07:45→07:47)
[2017-06-07] MEDS ORDERED: ROCURONIUM 10MG/ML 10ML VIAL IV ONE (07:47)
[2017-06-07] MEDS ORDERED: PROPOFOL 10 MG/ML 20 ML IV ONE (07:47)
[2017-06-07] MEDS ORDERED: BUPIVACAINE 0.75% INJ 10ML MPV SDV IJ ONE (08:00)
[2017-06-07] MEDS ORDERED: VANCOMYCIN HCL 1000 MG VL ONE ×2 (08:03→08:17)
[2017-06-07] MEDS ORDERED: VANCOMYCIN HCL 1000 MG VL IR ONE (08:30)
[2017-06-07] MEDS ORDERED: ePHEDrine SULFATE 50 MG/ML AMP IV PRN (08:45)
[2017-06-07] MEDS ORDERED: hydrALAZINE HCL 20 MG/ML VL IV PRN (08:45)
[2017-06-07] MEDS ORDERED: ONDANSETRON HCL 4 MG/2 ML VIAL IV ONE (08:45)
[2017-06-07] MEDS: fentaNYL CITRATE 100 MCG/2 ML VL IV PRN ×4 (08:52→09:35)
[2017-06-07] MEDS ORDERED: SUCCINYLCHOLINE CHLORIDE 20 MG/ML 10ML VIAL IV ONE (08:57)
[2017-06-07] MEDS: LOSARTAN POTASSIUM 25 MG TAB PO SCH (10:00)
[2017-06-07] MEDS ORDERED: VANCOMYCIN 1GM/250ML 250 ML IV ONE (10:00)
[2017-06-07 10:14] VITALS: BP 111/60
[2017-06-07] MEDS: FUROSEMIDE 40 MG TAB PO SCH (10:24)
[2017-06-07] MEDS: PANTOPRAZOLE 40 MG TAB PO SCH (10:25)
[2017-06-07] MEDS: POTASSIUM CHL 20 Meq TABLET PO SCH (10:25)
[2017-06-07 13:26] VITALS: BP 125/69
[2017-06-07] MEDS ORDERED: ALPRAZolam 0.25 MG TAB PO PRN (14:15)
[2017-06-07] MEDS ORDERED: VANCOMYCIN 1GM/250ML 250 ML IV SCH (15:00)
[2017-06-07 16:46] VITALS: BP 124/63
[2017-06-07] MEDS: VANCOMYCIN 1GM/250ML 250 ML IV SCH (17:23)
[2017-06-07 22:00] VITALS: BP 117/67
[2017-06-07] MEDS: TEMAZEPAM 15 MG CAP PO PRN (22:01)
[2017-06-08] MEDS: MEPERIDINE HCL (50 MG/ML) 1 ML VIAL IV PRN ×5 (01:44→20:12)
[2017-06-08 05:00] VITALS: BP 113/77
[2017-06-08] MEDS: PIPERACILLIN-TAZO 4.5GM 100 ML IV SCH ×3 (05:45→21:34)
[2017-06-08 07:37] LABS: Albumin 2.9 g/dL (3.4-5.0); BUN/Creatinine Ratio 14.8; Bilirubin, Total 0.4 mg/dL (0.2-1.0); Calcium 8.7 mg/dL (8.5-10.1); Potassium 3.8 mmol/L (3.5-5.1)
[2017-06-08 09:14] VITALS: BP 112/66
[2017-06-08] MEDS: LOSARTAN POTASSIUM 25 MG TAB PO SCH (10:00)
[2017-06-08] MEDS: POTASSIUM CHL 20 Meq TABLET PO SCH (10:00)
[2017-06-08] MEDS: FUROSEMIDE 40 MG TAB PO SCH (10:00)
[2017-06-08] MEDS: PANTOPRAZOLE 40 MG TAB PO SCH (10:03)
[2017-06-08 13:00] VITALS: BP 122/73
[2017-06-08] MEDS: guaiFENesin 200 MG/10 ML UD PO PRN (15:52)
[2017-06-08] MEDS: VANCOMYCIN 1GM/250ML 250 ML IV SCH (17:18)
[2017-06-08 17:21] VITALS: BP 91/57
[2017-06-08] MEDS ORDERED: PROMETHAZINE HCL 25 MG/ML 1ML IV ONE (19:15)
[2017-06-08] MEDS: TEMAZEPAM 15 MG CAP PO PRN (21:34)
[2017-06-08 22:00] VITALS: BP 125/67
[2017-06-08] MEDS ORDERED: MORPHINE SULFATE 8mg/ml INJ SDV IV PRN (22:15)
[2017-06-09] MEDS: guaiFENesin 200 MG/10 ML UD PO PRN ×3 (02:18→21:51)
[2017-06-09] MEDS: MEPERIDINE HCL (50 MG/ML) 1 ML VIAL IV PRN ×5 (02:19→21:51)
[2017-06-09 05:00] VITALS: BP 118/69
[2017-06-09] MEDS: PIPERACILLIN-TAZO 4.5GM 100 ML IV SCH ×3 (06:27→21:51)
[2017-06-09 06:30] LABS: Albumin 2.7 g/dL (3.4-5.0); BUN/Creatinine Ratio 15.9; Calcium 8.6 mg/dL (8.5-10.1); Potassium 4.3 mmol/L (3.5-5.1)
[2017-06-09 06:33] LABS: Bilirubin, Total 0.3 mg/dL (0.2-1.0); Total Protein 6.6 g/dL (6.4-8.2)
[2017-06-09 08:00] VITALS: BP 116/66
[2017-06-09] MEDS: PANTOPRAZOLE 40 MG TAB PO SCH (10:30)
[2017-06-09] MEDS: FUROSEMIDE 40 MG TAB PO SCH (10:30)
[2017-06-09] MEDS: POTASSIUM CHL 20 Meq TABLET PO SCH (10:30)
[2017-06-09] MEDS: LOSARTAN POTASSIUM 25 MG TAB PO SCH (10:31)
[2017-06-09 12:30] VITALS: BP 141/79
[2017-06-09] MEDS: PROMETHAZINE HCL 25 MG/ML 1ML IV PRN (12:36)
[2017-06-09 16:30] VITALS: BP 95/66
[2017-06-09 21:30] VITALS: BP 110/64
[2017-06-09] MEDS: TEMAZEPAM 15 MG CAP PO PRN (22:47)
[2017-06-10] MEDS: MEPERIDINE HCL (50 MG/ML) 1 ML VIAL IV PRN ×4 (04:27→20:56)
[2017-06-10] MEDS: guaiFENesin 200 MG/10 ML UD PO PRN ×3 (04:40→20:56)
[2017-06-10 05:00] VITALS: BP 132/71
[2017-06-10] MEDS: PIPERACILLIN-TAZO 4.5GM 100 ML IV SCH ×3 (05:32→22:13)
[2017-06-10 05:43] LABS: Basophils # (auto) 0.1 uL; Eosinophils # (auto) 0.3 uL; Hemoglobin 11.4 g/dL (12.2-16.2); Mean Corpuscular Hemoglobin 25.6 pg (28.0-32.0); Monocytes # (auto) 0.5 uL; Neutrophils # (auto) 3.8 uL; Nucleated Red Blood Cells % 0.1 %
[2017-06-10 05:47] LABS: Basophils % (auto) 1.8 % (0.0-2.0); Eosinophils % (auto) 4.3 % (0.0-7.0); Hematocrit 34.4 % (36.0-46.0); Lymphocytes # (auto) 2.1 uL; Lymphocytes % (auto) 30.3 % (10.0-50.0); Mean Corpuscular Hgb Conc. 33.1 g/dL (32.0-36.0); Mean Corpuscular Volume 77.5 fL (80.0-100.0); Neutrophils % (auto) 55.6 % (37.0-80.0); Platelet Count (auto) 367 10^3/uL (140-450); Red Blood Cells 4.44 10^6/uL (4.0-5.20); Red Cell Distribution Width 17.4 % (11.8-14.3); White Blood Cell 6.8 10^3/uL (4.4-10.8)
[2017-06-10 09:00] VITALS: BP 122/65
[2017-06-10] MEDS: POTASSIUM CHL 20 Meq TABLET PO SCH (09:49)
[2017-06-10] MEDS: PROMETHAZINE HCL 25 MG/ML 1ML IV PRN (09:49)
[2017-06-10] MEDS: PANTOPRAZOLE 40 MG TAB PO SCH (09:49)
[2017-06-10] MEDS: FUROSEMIDE 40 MG TAB PO SCH (09:50)
[2017-06-10] MEDS: LOSARTAN POTASSIUM 25 MG TAB PO SCH (09:50)
[2017-06-10 13:00] VITALS: BP 109/47
[2017-06-10 17:00] VITALS: BP 129/66
[2017-06-10 22:00] VITALS: BP 119/72
[2017-06-10] MEDS: TEMAZEPAM 15 MG CAP PO PRN (23:12)
[2017-06-11] MEDS: MEPERIDINE HCL (50 MG/ML) 1 ML VIAL IV PRN ×4 (03:31→20:27)
[2017-06-11] MEDS: guaiFENesin 200 MG/10 ML UD PO PRN ×4 (03:31→21:44)
[2017-06-11 04:50] VITALS: BP 95/51
[2017-06-11] MEDS: PIPERACILLIN-TAZO 4.5GM 100 ML IV SCH ×3 (06:30→21:44)
[2017-06-11 08:35] VITALS: BP 112/72
[2017-06-11] MEDS: PROMETHAZINE HCL 25 MG/ML 1ML IV PRN (08:44)
[2017-06-11] MEDS: FUROSEMIDE 40 MG TAB PO SCH (10:30)
[2017-06-11] MEDS: POTASSIUM CHL 20 Meq TABLET PO SCH (10:31)
[2017-06-11] MEDS: PANTOPRAZOLE 40 MG TAB PO SCH (10:31)
[2017-06-11] MEDS: LOSARTAN POTASSIUM 25 MG TAB PO SCH (10:32)
[2017-06-11 13:00] VITALS: BP 128/60
[2017-06-11 17:00] VITALS: BP 105/65
[2017-06-11] MEDS: TEMAZEPAM 15 MG CAP PO PRN (21:44)
[2017-06-11 22:00] VITALS: BP 108/62
[2017-06-12] MEDS: MEPERIDINE HCL (50 MG/ML) 1 ML VIAL IV PRN ×4 (01:01→21:30)
[2017-06-12 05:06] VITALS: BP 112/83
[2017-06-12] MEDS: PIPERACILLIN-TAZO 4.5GM 100 ML IV SCH ×3 (06:32→21:30)
[2017-06-12] MEDS: guaiFENesin 200 MG/10 ML UD PO PRN ×2 (06:32→23:34)
[2017-06-12 08:00] VITALS: BP 112/72
[2017-06-12 08:37] VITALS: BP 91/58
[2017-06-12] MEDS: POTASSIUM CHL 20 Meq TABLET PO SCH (08:46)
[2017-06-12] MEDS: PROMETHAZINE HCL 25 MG/ML 1ML IV PRN ×2 (08:46→12:59)
[2017-06-12] MEDS: LOSARTAN POTASSIUM 25 MG TAB PO SCH (08:47)
[2017-06-12] MEDS: FUROSEMIDE 40 MG TAB PO SCH (08:47)
[2017-06-12] MEDS: PANTOPRAZOLE 40 MG TAB PO SCH (08:47)
[2017-06-12 13:18] VITALS: BP 117/76
[2017-06-12 16:29] VITALS: BP 113/70
[2017-06-12] MEDS: PROMETHAZINE HCL 25 MG/ML 1ML IM PRN (21:30)
[2017-06-12 22:00] VITALS: BP 106/69
[2017-06-12] MEDS: TEMAZEPAM 15 MG CAP PO PRN (23:35)
[2017-06-13] MEDS: MEPERIDINE HCL (50 MG/ML) 1 ML VIAL IV PRN ×4 (04:16→17:43)
[2017-06-13 04:56] VITALS: BP 131/71
[2017-06-13] MEDS: PIPERACILLIN-TAZO 4.5GM 100 ML IV SCH ×2 (06:13→14:30)
[2017-06-13 08:53] VITALS: BP 93/58
[2017-06-13] MEDS: POTASSIUM CHL 20 Meq TABLET PO SCH (09:26)
[2017-06-13] MEDS: FUROSEMIDE 40 MG TAB PO SCH (09:27)
[2017-06-13] MEDS: PANTOPRAZOLE 40 MG TAB PO SCH (09:27)
[2017-06-13] MEDS: LOSARTAN POTASSIUM 25 MG TAB PO SCH (09:27)
[2017-06-13] MEDS: PROMETHAZINE HCL 25 MG/ML 1ML IM PRN ×2 (09:28→15:42)
[2017-06-13 12:34] VITALS: BP 136/76
[2017-06-13 16:32] VITALS: BP 106/59
== END 2017-06-13 19:25 | disposition home or self-care (01) | DRG 260 ==
LOC: ER 08:20 → TELE 08:21 → TELE-WESTW 19:45
PROVIDERS: ADMIT Internal Medicine Cardiovascular Disease; ATTEND Internal Medicine Cardiovascular Disease
PROC: 02PA0MZ Removal of Cardiac Lead from Heart, Open Approach (ICD-10-PCS; 2017-06-07)
PROC: 0JPT0PZ Removal of Cardiac Rhythm Related Device from Trunk Subcutaneous Tissue and Fascia, Open Approach (ICD-10-PCS; principal; 2017-06-07 07:35)
DX: T82.7XXA Infection and inflammatory reaction due to other cardiac and vascular devices, implants and grafts, initial encounter (principal); I50.21 Acute systolic (congestive) heart failure; I42.0 Dilated cardiomyopathy; T81.31XA Disruption of external operation (surgical) wound, not elsewhere classified, initial encounter; L03.313 Cellulitis of chest wall; E66.01 Morbid (severe) obesity due to excess calories; Z68.41 Body mass index [BMI] 40.0-44.9, adult; I11.0 Hypertensive heart disease with heart failure; K21.9 Gastro-esophageal reflux disease without esophagitis; I34.0 Nonrheumatic mitral (valve) insufficiency; Y83.9 Surgical procedure, unspecified as the cause of abnormal reaction of the patient, or of later complication, without mention of misadventure at the time of the procedure; G89.29 Other chronic pain; F41.9 Anxiety disorder, unspecified; Z86.718 Personal history of other venous thrombosis and embolism; Z95.0 Presence of cardiac pacemaker; Z88.2 Allergy status to sulfonamides; Z88.8 Allergy status to other drugs, medicaments and biological substances; Y92.89 Other specified places as the place of occurrence of the external cause
CPT/HCPCS: 36415; 71046; 80053; 81001; 81025; 83605; 85025; 87040; 87075; 87081; 87205; 93005; 96361; 96365; 96367; 96375; J0330; J2250; J2543; J2704; J3490

== ENCOUNTER → 2017-06-22 | Outpatient (CLI) | payer BC, MEDICARE ==
[~2017-06-22] VITALS: Ht 30.5 cm; Wt 0.5 kg
[2017-06-22 13:05] VITALS: BP 138/86
[2017-06-22 13:35] VITALS: BP 124/76
== END | disposition home or self-care (01) ==
LOC: CHF HDHVI 13:12
PROVIDERS: ATTEND Internal Medicine Cardiovascular Disease
DX: Z45.2 Encounter for adjustment and management of vascular access device (principal); E66.9 Obesity, unspecified; I11.0 Hypertensive heart disease with heart failure; I50.21 Acute systolic (congestive) heart failure; K21.9 Gastro-esophageal reflux disease without esophagitis
CPT/HCPCS: G0463; J1642

== ENCOUNTER → 2017-06-28 | Outpatient (CLI) | payer BC, MEDICARE ==
[~2017-06-28] MED LIST changes: +CYANOCOBALAMIN (B-12) 1000 MCG/1 ML VIAL ONE
[2017-06-28 13:20] VITALS: BP 144/80
== END | disposition home or self-care (01) ==
LOC: Rad HDHVI 12:06
PROVIDERS: ATTEND Internal Medicine Cardiovascular Disease
DX: R91.8 Other nonspecific abnormal finding of lung field (principal); Z79.899 Other long term (current) drug therapy; I10 Essential (primary) hypertension
CPT/HCPCS: 71046; G0463

== ENCOUNTER 2017-08-04 23:59 | Emergency (ER) | payer BC, MEDICARE ==
[~2017-08-04] VITALS: Ht 175.3 cm; Wt 136.1 kg
[~2017-08-04 23:59] MED LIST changes: -CYANOCOBALAMIN (B-12) 1000 MCG/1 ML VIAL ONE
[2017-08-05 00:24] VITALS: BP 113/65
== END 2017-08-05 01:10 | disposition left against medical advice (07) ==
LOC: ER 23:59
DX: F10.120 Alcohol abuse with intoxication, uncomplicated (principal); Z95.0 Presence of cardiac pacemaker; Z53.21 Procedure and treatment not carried out due to patient leaving prior to being seen by health care provider
CPT/HCPCS: 93005

== ENCOUNTER 2017-10-14 21:27 | Emergency (ER) | payer BC, MEDICARE ==
[~2017-10-14] VITALS: Ht 175.3 cm; Wt 131.5 kg
[2017-10-14 21:45] VITALS: BP 114/53
== END 2017-10-15 00:30 | disposition home or self-care (01) ==
LOC: ER 21:27
DX: S06.0X9A Concussion with loss of consciousness of unspecified duration, initial encounter (principal); S00.83XA Contusion of other part of head, initial encounter; I13.0 Hypertensive heart and chronic kidney disease with heart failure and stage 1 through stage 4 chronic kidney disease, or unspecified chronic kidney disease; I50.9 Heart failure, unspecified; N18.9 Chronic kidney disease, unspecified; E07.9 Disorder of thyroid, unspecified; Z95.0 Presence of cardiac pacemaker; E66.01 Morbid (severe) obesity due to excess calories; Z68.41 Body mass index [BMI] 40.0-44.9, adult; W01.0XXA Fall on same level from slipping, tripping and stumbling without subsequent striking against object, initial encounter; Y93.89 Activity, other specified; Y99.8 Other external cause status; Y92.89 Other specified places as the place of occurrence of the external cause
CPT/HCPCS: 70450